=== PATIENT | male | born 1950 | race Hispanic/Latino ===

== ENCOUNTER 2020-11-22 16:37 | Outpatient (CLI) | payer MEDICARE | END 2020-11-22 16:38 | disposition home or self-care (01) | LOC: SCSRAD 16:37 | PROVIDERS: ATTEND Nurse Practitioner Family | DX: M54.50 Low back pain, unspecified (principal); M47.816 Spondylosis without myelopathy or radiculopathy, lumbar region | CPT/HCPCS: 72100 ==